=== PATIENT | male | born 1940 | race Caucasian/White ===

== ENCOUNTER 2018-10-13 08:02 | Outpatient (CLI) | payer MEDICARE, BC, SELFPAY ==
[2018-10-13 08:30] LABS: HCT 47.4 % (40.0-50.0); HGB 15.8 g/dL (13.5-17.5); Mean Corp. HGB Concentration 33.3 g/dL (32.0-36.0); Mean Corpuscular Hemoglobin 32.8 pg (27.0-33.0); Mean Corpuscular Volume 98.3 fL (80-95); Mean Platelet Volume 10.3 fL (8.0-11.0); Platelet Count 198 x1000/uL (130-400); RBC 4.82 m/cumm (4.50-6.00); RBC Distribution Width 13.6 % (11.8-14.1)
[2018-10-13 10:41] LABS: ALT 34 U/L (12-78); AST 26 U/L (15-37); Albumin 3.8 g/dL (3.4-5.0); Alkaline Phosphatase 52 U/L (46-116); Anion Gap 7.6 mmol/L (3-11); BUN 19 mg/dL (7-18); CO2 30.4 mmol/L (21.0-32.0); CREATININE 0.97 mg/dL (0.70-1.30); Calcium 9.1 mg/dL (8.5-10.1); Chloride 107 mmol/L (98-107); Cholesterol 202 mg/dL (50-200); Glucose 88 mg/dL (70-100); HDL Cholesterol 71 mg/dL (40-60); LDL CHOLESTEROL 115 mg/dL (<100); Potassium 4.1 mmol/L (3.5-5.1); Sodium 145 mmol/L (136-145); TSH (W/Ref FT4) 1.24 uIU/mL (0.358-3.74); Total Protein 6.8 g/dL (6.4-8.2); Triglyceride 94 mg/dL (30-150)
== END 2018-10-13 08:22 ==
PROVIDERS: PCP Nurse Practitioner; Visit Provider Nurse Practitioner
DX: E03.9 Hypothyroidism, unspecified (principal); G47.00 Insomnia, unspecified; I71.2 Thoracic aortic aneurysm, without rupture; E78.5 Hyperlipidemia, unspecified; I48.91 Unspecified atrial fibrillation; I10 Essential (primary) hypertension
CPT/HCPCS: 36415; 80053; 80061; 83721; 85027; 84443

== ENCOUNTER 2019-03-03 00:32 | Outpatient (CLI) | payer MEDICARE, BC, SELFPAY ==
--- NOTE | 2019-03-03 09:02 | DI.CT_ITS ---
SYMPTOMS/DIAGNOSIS: INTERMITTENT BALANCE PROBLEMS, VISION CHANGES, H53.9, R26.[address]: Comparison is made with [id number]. No intracranial hemorrhage, mass or infarct is seen. The ventricles are normal in size. There are minimal white matter changes likely reflecting small vessel disease. No skull fracture is seen. IMPRESSION: No acute abnormality.
--- NOTE | 2019-03-03 10:02 | DI.US_ITS ---
SYMPTOM/DIAGNOSIS: STROKE, VISUAL, IMBALANCE, HYPERTENSION, H53.9,R26.89 CAROTID ULTRASOUND: There is a mild amount of mostly calcific plaque and seen in both common carotid bulbs and proximal left internal carotid artery. A mild amount of plaque is also seen in the right proximal external carotid artery. The velocity measurements obtained are within the normal range. The vertebral arteries show antegrade flow. IMPRESSION: Mild amount of plaque. No significant internal carotid artery stenosis.
== END 2019-03-03 00:52 ==
PROVIDERS: PCP Nurse Practitioner; Visit Provider Nurse Practitioner
DX: H53.9 Unspecified visual disturbance (principal); R26.89 Other abnormalities of gait and mobility; I10 Essential (primary) hypertension; R90.82 White matter disease, unspecified
CPT/HCPCS: 70450; 93880

== ENCOUNTER 2019-03-24 08:31 | Outpatient (CLI) | payer MEDICARE, BC, SELFPAY ==
[2019-03-24 09:21] LABS: INR 1.4 (0.9-1.1); Prothrombin Time 14.1 sec (9.3-11.0)
== END 2019-03-24 08:51 ==
PROVIDERS: PCP Nurse Practitioner; Visit Provider Nurse Practitioner
DX: I48.91 Unspecified atrial fibrillation (principal); Z79.01 Long term (current) use of anticoagulants
CPT/HCPCS: 36415; 85610

== ENCOUNTER 2019-03-27 07:38 | Outpatient (CLI) | payer MEDICARE, BC, SELFPAY ==
[2019-03-27 08:19] LABS: INR 2.7 (0.9-1.1); Prothrombin Time 27.1 sec (9.3-11.0)
== END 2019-03-27 07:58 ==
PROVIDERS: PCP Nurse Practitioner; Visit Provider Nurse Practitioner
DX: I48.91 Unspecified atrial fibrillation (principal); Z79.01 Long term (current) use of anticoagulants
CPT/HCPCS: 36415; 85610

== ENCOUNTER 2019-05-29 13:06 | Outpatient (REF) | payer MEDICARE, BC, SELFPAY ==
--- NOTE | 2019-05-29 | SKI_PTH ---
PATIENT: Gage Arita JR LOC: N U#:[id number] AGE/SX: 78/M ROOM: RE05/29/[address]: Lilliam Hall APRN : 1940 BED: DIS: 05/29/2019 SPEC #: [id number] RECD: 05/29/19 18:00 STATUS: RACHEL REQ #: [id number] DEMETRIA: 05/29/19 00:[address]: Samir Thurston DEPT: Surgical Specimen RECD BY: Wilma Abebe ENTERED: 05/29/19 18:01 SP TYPE: SKI OTHR DR: Lilliam Hall APRN Tissues: 1 - SKIN BIOPSY(SHAVE/PUNCH) 2 - SKIN BIOPSY(SHAVE/PUNCH) Procedures: SKIN LEVEL 4 Comments: [id number]
== END 2019-05-29 13:26 ==
LOC: LBN 13:06
PROVIDERS: PCP Nurse Practitioner; Visit Provider Nurse Practitioner
DX: L82.1 Other seborrheic keratosis (principal)
CPT/HCPCS: 88304; 88305

== ENCOUNTER 2019-06-27 16:43 | Outpatient (CLI) | payer MEDICARE, BC, SELFPAY ==
[2019-06-27 17:24] LABS: INR 2.9 (0.9-1.1); Prothrombin Time 29.4 sec (9.3-11.0)
[2019-06-27 18:04] LABS: Abs Immature Grans 0.08 k/cumm (0.0-0.09); Absolute Basophil Count 0.03 k/cumm (0.0-0.2); Absolute Lymphocyte Count 1.35 k/cumm (1.2-3.4); Absolute Neutrophil Count 13.45 k/cumm (1.2-6.7); Basophils % 0.2; Eosinophils % 0.9; HCT 47.9 % (40.0-50.0); HGB 15.7 g/dL (13.5-17.5); Immature Grans % 0.5; Lymphocytes % 8.3; Mean Corp. HGB Concentration 32.8 g/dL (32.0-36.0); Mean Corpuscular Hemoglobin 32.2 pg (27.0-33.0); Mean Corpuscular Volume 98.2 fL (80-95); Mean Platelet Volume 10.7 fL (8.0-11.0); Monocytes % 7.4; Neutrophils % 82.7; Platelet Count 283 x1000/uL (130-400); RBC 4.88 m/cumm (4.50-6.00); RBC Distribution Width 13.1 % (11.8-14.1); White Blood Cell Count 16.26 k/cumm (4.4-10.8)
[2019-06-27 18:06] LABS: Absolute Eosinophil Count 0.15 k/cumm (0.0-0.7)
[2019-06-27 18:24] LABS: CREATININE 0.89 mg/dL (0.70-1.30)
== END 2019-06-27 17:03 ==
PROVIDERS: PCP Nurse Practitioner Adult Health; Visit Provider Internal Medicine
DX: R10.32 Left lower quadrant pain (principal); I48.91 Unspecified atrial fibrillation; Z79.01 Long term (current) use of anticoagulants
CPT/HCPCS: 36415; 82565; 85025; 85610

== ENCOUNTER 2019-06-28 11:37 | Outpatient (CLI) | payer MEDICARE, BC, SELFPAY ==
[2019-06-28] MEDS: Omnipaque 350 MG/ML 50 ML BTL PO (13:31)
[2019-06-28] MEDS: Omnipaque 350 MG/ML 100 ML BTL IJ (14:15)
--- NOTE | 2019-06-28 14:19 | DI.CT_ITS ---
EXAM: CT ABDOMEN PELVIS W CLINICAL HISTORY: LLQ abdominal pain, R10.32., H/O DIVERTICULITIS TECHNIQUE: CT of the abdomen and pelvis was performed with bolus infusion of 100 cc of Omnipaque 350 and ingestion of dilute barium. COMPARISON: No exams were available for comparison FINDINGS: Images obtained through the lung bases show some apparent areas of scarring, pulmonary and pleural. Liver is unremarkable in appearance as is the spleen. Pancreas appears intact. Gallbladder has been surgically removed. No biliary dilatation. Adrenals unremarkable in appearance. Multiple bilatera l nonobstructing renal calculi identified. No hydronephrosis. Abdominal aorta is of normal diameter and no major vascular abnormality is seen. No significant abdominal wall hernia seen. No abdominal or pelvic adenopathy. Appendix appears normal. There is marked wall thickening of the mid to distal descending colon and proximal to mid sigmoid col on with marked pericolonic fat edema. Findings are consistent with acute diverticulitis. There is f luid collection in the left inguinal region adjacent to the descending/sigmoid junction measuring up to about 3 cm. which could represent free fluid versus early abscess. Small quantity of free fluid is also noted in the pelvis. Findings consistent with acute diverticulitis of the descending and sig moid colon as described above. Small quantity of free fluid, early intra peritoneal abscess adjacent to the inguinal region not excluded.
== END 2019-06-28 11:57 ==
PROVIDERS: PCP Nurse Practitioner Adult Health; Visit Provider Internal Medicine
DX: R10.32 Left lower quadrant pain (principal); N20.0 Calculus of kidney; K57.32 Diverticulitis of large intestine without perforation or abscess without bleeding
CPT/HCPCS: 74177; J3490; Q9967

== ENCOUNTER 2019-07-01 08:21 | Emergency (ER) | payer MEDICARE, BC, SELFPAY ==
[2019-07-01 08:26] VITALS: BP 118/80; PULSE 88; RESP 14; TEMP 36.7; O2SAT 98
--- NOTE | 2019-07-01 08:53 | W.ED.GENAD ---
Discharge Plan Disposition Patient Disposition: HOME Condition: Good Discharge Details Chief Complaint: EyeProblem Clinical Impression: Conjunctivitis Primary Care Provider: Tory Pena ED Provider: Michelle Rosales Home Meds and New Rx's Prescriptions: Continued magnesium 250 mg tablet 250 mg PO DAILY RF: 0 metronidazole 500 mg tablet 500 mg PO TID Qty: 21 RF: 0 ciprofloxacin HCl [Cipro] 500 mg tablet 500 mg PO BID Qty: 14 RF: 0 coenzyme Q10 [CoQ-10] 30 MG capsule 30 mg PO DAILY 2 Days RF: 0 multivitamin [Multi-Day] 1 EACH tablet 1 ea PO DAILY RF: 0 acetaminophen [Acetaminophen Extra Strength] 500 MG tablet 500 mg PO PRN RF: 0 tamsulosin 0.4 MG capsule 0.4 mg PO DAILY Qty: 60 RF: 3 prednisone 5 MG tablet 5 mg PO DAILY RF: 0 dofetilide [Tikosyn] 500 MCG capsule 500 mcg PO BID RF: 0 cholecalciferol (vitamin D3) [Vitamin D3] 1,000 UNIT capsule 1,000 unit PO DAILY RF: 0 azelastine 137 MCG/0.137 ML aerosol,spray 2 spry NU BID RF: 2 calcium citrate 250 MG tablet 250 mg PO DAILY RF: 0 albuterol sulfate [ProAir HFA] 90 mcg/actuation HFA aerosol inhaler 2 puff Inhalation Q4H PRN Qty: 3 RF: 3 Shingrix (PF) 50 mcg/0.5 mL suspension for reconstitution 50 mcg IM ONCE Qty: 1 RF: 1 levothyroxine 112 mcg tablet 112 mcg PO DAILY Qty: 90 RF: 3 warfarin 3 mg tablet 3 mg PO DAILY RF: 0 lisinopril 5 mg tablet 2.5 mg PO DAILY RF: 0 Discharge Instructions Instructions: Polymyxin B/Neomycin/Dexamethasone (Into the eye), Conjunctivitis (ED) Additional Instructions: Encourage hydration. Please use the polymyxin Neosporin dexamethasone ointment. Please have a inch ribbon into the lower lid 4 times daily for the next 5 days. Please follow-up with industrial design engineer this week for reevaluation. If you develop eye pain, discharge, visual change, fevers or other new/worsening symptoms please seek care urgently once again. Referrals: Tory Pena, DEBONER [Primary Care Provider] - Discharge Data Discharge Date/Time-TO BE ENTERED AT DEPARTURE: 07/01/19 09:41 Medical Decision Making Patient 78-year-old male presents today with chief complaint of right eye redness and irritation. Yesterday, began noting some mild edema to the medial aspect of the sclera. Denies any pain in the eye. Is not itching. Denies any discharge. 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 Eyelid at this time is asymptomatic, no erythema or pain. Patient does have a small amount of swelling noted. He does endorse some congestion. I think this may be allergic driven. Without any discharge from bacterial conjunctivitis less likely. He denies any foreign body in the eye or foreign body sensation. As the patient has history of recurrent blepharitis along with todays symptoms, plan to treat with polymyxin/neomycin/dexamethasone ointment. He has an industrial design engineer he sees routinely, advised close f/u. W e discussed new/worsening symptoms and when to seek care urgently once again. All of her questions and concerns were addressed, she is in agreement with this plan. HPI General Mode of arrival: ambulatory. Date/Time Provider Initiated Documentation: 07/01/19 08:53. Limitations to Documentation: no limitations. Information obtained by: patient and RN notes reviewed. History of Present Illness 78 year old M presents to the emergency department with the chief complaint of Right eye redness, described as mild (States mild irritation but no pain), and is localized to the eyes. Patient reports no radiation. Patient started experiencing this day(s) (3) and it has been constant. No relieving factors improve symptom(s), No exacerbating factors reported . Patient notes no other symptoms.. Patient did receive the following treatments prior to arrival, none Related Data Home Medications Medication Instructions Recorded Confirmed acetaminophen [Acetaminophen Extra 500 mg PO PRN 12/12/12 07/01/19 Strength] coenzyme Q10 [CoQ-10] 30 mg PO DAILY 2 Days 12/12/12 07/01/19 multivitamin [Multi-Day] 1 ea PO DAILY 12/12/12 07/01/19 tamsulosin 0.4 mg PO DAILY #60 tab-cap 02/03/13 07/01/19 prednisone 5 mg PO DAILY tab-cap 02/10/13 07/01/19 dofetilide [Tikosyn] 500 mcg PO BID 06/22/13 07/01/19 cholecalciferol (vitamin D3) 1,000 unit PO DAILY 01/01/16 07/01/19 [Vitamin D3] azelastine 2 spry NU BID spray 03/15/17 07/01/19 calcium citrate 250 mg PO DAILY 06/17/17 07/01/19 albuterol sulfate 90 mcg/actuation 2 puff INHALATION Q4H PRN #3 07/26/18 07/01/19 aerosol inhaler inhaler varicella-zoster [id number] (PF) 50 50 mcg IM ONCE #1 each 09/12/18 06/27/19 mcg/0.5 mL IM susp, kit levothyroxine 112 mcg tablet 112 mcg PO DAILY #90 tab-cap 11/17/18 07/01/19 magnesium 250 mg tablet 250 mg PO DAILY 03/21/19 07/01/19 ciprofloxacin HCl 500 mg tablet 500 mg PO BID #14 tab 06/27/19 07/01/19 metronidazole 500 mg tablet 500 mg PO TID #21 tab 06/27/19 07/01/19 lisinopril 2.5 mg PO DAILY 07/01/19 07/01/19 warfarin 3 mg PO DAILY 07/01/19 07/03/19 Previous Rx's Medication Instructions Recorded albuterol sulfate 90 mcg/actuation 2 puff INHALATION Q4H PRN #3 07/26/18 aerosol inhaler inhaler varicella-zoster [id number] (PF) 50 50 mcg IM ONCE #1 each 09/12/18 mcg/0.5 mL IM susp, kit levothyroxine 112 mcg tablet 112 mcg PO DAILY #90 tab-cap 11/17/18 ciprofloxacin HCl 500 mg tablet 500 mg PO BID #14 tab 06/27/19 metronidazole 500 mg tablet 500 mg PO TID #21 tab 06/27/19 Allergies Allergy/AdvReac Type Severity Reaction Status Date / Time aspirin Allergy Severe sob Verified 06/27/19 15:26 Cephalosporins Allergy Intermediate hives Verified 06/27/19 15:26 clopidogrel bisulfate Allergy Intermediate SOB Verified 06/27/19 15:26 [From Plavix] Penicillins Allergy Intermediate childhood Verified 06/27/19 15:26 rxn DUST Allergy Unknown Uncoded 06/27/19 15:26 General Stated Complaint: EyeProblem AUBREY: 4 Review of Systems Constitutional Constitutional: Reports as per HPI, Denies chills, Denies fatigue, Denies fever(s) and Denies headache(s) Eyes Eyes: Reports as per HPI ENT Ears, Nose, Mouth, and Throat: Denies headache(s) Cardiovascular Cardiovascular: Reports as per HPI, Denies chest pain and Denies lightheadedness Respiratory Respiratory: Denies cough Integumentary/Breasts Skin/Breast: Reports as per HPI, Denies rash, Denies skin pain and Denies skin swelling Neurologic Neurologic: Denies headache(s) and Denies radicular pain Endocrine Endocrine: Denies fatigue [facility] Medical History A-fib Aneurysm, ascending aorta Asthma 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 JOSÉ MANUEL (generalized anxiety disorder) GERD (gastroesophageal reflux disease) HTN (hypertension) Lower urinary tract symptoms (LUTS) Rectal urgency Surgical History Bronchoscopy (01/23/15) with bx Cholecystectomy (~2003) Dr Santana Mora Colonscopy w/ Bx (08/12/16) [place] (01/12/17[place] [place] [facility] [place]air of inguinal hernia (10/15/15) Dr Martin S/P ablation of atrial fibrillation (Acute 02/08/13) Social History Smoking/Tobacco Use Status: Former Tobacco Use Tobacco: How many years used: 10 Alcohol Intake: current Alcohol Intake frequency: 0-2 drinks per day Alcohol type: wine Drug use: Never Substance use type: does not use Do you feel safe in your relationship?: Yes Exam Const General: cooperative, healthy appearing, comfortable, no acute distress, well developed and well groomed Nutritional Appearance: average body habitus and well nourished Orientation: alert, awake and oriented x3 HENMT Head: normal to inspection, normocephalic and atraumatic Ears: hearing grossly normal bilaterally and external ears normal General nose exam: external nose normal and nares normal Face and sinus: normal facial exam and face symmetric Mouth: oral mucosae normal, lip normal and moist mucous membranes Eyes Visual Camara: normal visual camara by confrontation Alignment and Position: alignment normal and position normal Periorbital: periorbital findings normal Eyelids: eyelids normal Conjunctivae: conjunctival abnormality right conjunctival injection diffuse Pupils: PERRL and normal by confrontation EOM: EOM intact bilaterally Resp Effort & Inspection: normal respiratory effort, able to speak in complete sentences and no respiratory distress Skin General skin exam: no rashes or lesions noted Neuro General: alert, awake and oriented x3 Cranial Nerves: CN's II-XI intact bilaterally Cognition: normal cognition Speech: speech normal Gait: normal gait Psych Appearance: grossly normal and well kempt Mental Status: mental status grossly normal Speech and Movement: speech and movement normal Course Vital Signs Vital signs: Vital Signs Temperature 36.7 C 07/01/19 08:26 Pulse 88 07/01/19 08:26 Respiratory Rate 14 07/01/19 08:26 Blood Pressure 118/80 07/01/19 08:26 Pulse Oximetry 98 07/01/19 08:26 Temperature 36.7 C 07/01/19 08:26 Temperature Source Tympanic 07/01/19 08:26 Pulse 88 07/01/19 08:26 Respiratory Rate 14 07/01/19 08:26 Blood Pressure 118/80 07/01/19 08:26 Pulse Oximetry 98 07/01/19 08:26 Oxygen Delivery Method Room Air 07/01/19 08:26 Oxygen Flow Rate 0 07/01/19 08:26 Pain Level 3 07/01/19 08:26 Comment 07/01/19 08:26
== END 2019-07-01 09:41 | disposition home or self-care (01) ==
PROVIDERS: Emergency Provider Physician Assistant; PCP Nurse Practitioner Adult Health
DX: H10.31 Unspecified acute conjunctivitis, right eye (principal); I10 Essential (primary) hypertension
CPT/HCPCS: 99283

== ENCOUNTER 2019-12-15 03:09 | Outpatient (CLI) | payer MEDICARE, BC, SELFPAY ==
--- NOTE | 2019-12-15 08:55 | DI.RAD_ITS ---
EXAM: XR CHEST 2V PA LATERAL INDICATION: Assess interval resolution bibas PNA J18.9 PNEUMONIA. COMPARISON: CHEST 2 VIEWS PA,LAT from 01/18/2015 TECHNIQUE: 2D digital imaging was performed. FINDINGS: The heart size is within normal limits. The aorta is tortuous. The lungs appear clear. The previo usly noted infiltrates are no longer seen. No new abnormalities are identified. IMPRESSION: Interval resolution right lower lobe infiltrate. No new abnormalities. DATA REPOSITORY: RADIATION DOSE DELIVERED:
[2019-12-15 09:51] LABS: ALT 29 U/L (16-63); AST 22 U/L (15-37); Albumin 3.6 g/dL (3.4-5.0); Alkaline Phosphatase 55 U/L (46-116); Anion Gap 7.8 mmol/L (3-11); BUN 15 mg/dL (7-18); Bilirubin, Total 0.9 mg/dL (0.2-1.0); CO2 29.2 mmol/L (21.0-32.0); CREATININE 0.87 mg/dL (0.70-1.30); Calcium 8.7 mg/dL (8.5-10.1); Chloride 107 mmol/L (98-107); Glucose 100 mg/dL (74-106); Sodium 144 mmol/L (136-145); Total Protein 6.4 g/dL (6.4-8.2)
== END 2019-12-15 03:29 ==
PROVIDERS: PCP Nurse Practitioner Adult Health; Visit Provider Nurse Practitioner Adult Health
DX: J18.9 Pneumonia, unspecified organism (principal); I10 Essential (primary) hypertension
CPT/HCPCS: 36415; 80053; 71046

== ENCOUNTER 2020-04-02 01:22 | Outpatient (CLI) | payer MEDICARE, BC, SELFPAY ==
[2020-04-02 11:12] LABS: Abs Immature Grans 0.05 k/cumm (0.0-0.09); Absolute Basophil Count 0.03 k/cumm (0.0-0.2); Absolute Eosinophil Count 0.19 k/cumm (0.0-0.7); Absolute Lymphocyte Count 0.95 k/cumm (1.2-3.4); Absolute Monocyte Count 0.57 k/cumm (0.11-0.7); Absolute Neutrophil Count 7.34 k/cumm (1.2-6.7); Basophils % 0.3; Eosinophils % 2.1; HCT 44.7 % (40.0-50.0); HGB 15.1 g/dL (13.5-17.5); Immature Grans % 0.5 %; Lymphocytes % 10.4; Mean Corp. HGB Concentration 33.8 g/dL (32.0-36.0); Mean Corpuscular Hemoglobin 32.5 pg (27.0-33.0); Mean Corpuscular Volume 96.1 fL (80-95); Mean Platelet Volume 10.8 fL (8.0-11.0); Monocytes % 6.2; Neutrophils % 80.5; Platelet Count 199 x1000/uL (130-400); RBC 4.65 m/cumm (4.50-6.00); RBC Distribution Width 13.1 % (11.8-14.1); White Blood Cell Count 9.13 k/cumm (4.4-10.8)
[2020-04-02 11:38] LABS: ALT 32 U/L (16-63); AST 27 U/L (15-37); Albumin 3.9 g/dL (3.4-5.0); Alkaline Phosphatase 56 U/L (46-116); Anion Gap 9.5 mmol/L (3-11); BUN 14 mg/dL (7-18); CO2 26.5 mmol/L (21.0-32.0); CREATININE 0.85 mg/dL (0.70-1.30); Chloride 106 mmol/L (98-107); Glucose 109 mg/dL (74-106); Magnesium 2.1 mg/dL (1.8-2.4); Sodium 142 mmol/L (136-145); TSH (W/Ref FT4) 0.83 uIU/mL (0.36-3.74); Total Protein 6.7 g/dL (6.4-8.2)
[2020-04-02 13:54] LABS: Vitamin B12 360 pg/mL (193-986)
== END 2020-04-02 01:42 ==
PROVIDERS: PCP Nurse Practitioner Adult Health; Visit Provider Nurse Practitioner Adult Health
DX: I48.91 Unspecified atrial fibrillation (principal); R42 Dizziness and giddiness; R53.83 Other fatigue; I71.2 Thoracic aortic aneurysm, without rupture
CPT/HCPCS: 36415; 80053; 82607; 83735; 84443; 85025

== ENCOUNTER 2020-06-13 03:54 | Outpatient (CLI) | payer MEDICARE, BC, SELFPAY ==
[2020-06-13 07:46] LABS: Abs Immature Grans 0.07 10^3/uL (0.0-0.06); Absolute Basophil Count 0.05 10^3/uL (0.0-0.2); Absolute Lymphocyte Count 1.57 10^3/uL (1.2-3.4); Absolute Monocyte Count 0.93 10^3/uL (0.1-0.8); Absolute Neutrophil Count 7.68 10^3/uL (1.2-6.7); Basophils % 0.5; Eosinophils % 1.9; HGB 14.9 g/dL (13.5-17.5); Immature Grans % 0.7; MCH 32.6 pg (27.0-33.0); MCHC 33.1 % (32.0-36.0); MCV 98.5 fL (80-95); MPV 11.2 fL (8.0-11.0); Monocytes % 8.9; Nucleated RBC 0 %; Platelet Count 199 10^3/uL (130-400); RBC 4.57 10^6/uL (4.36-5.78); RDW 13.1 % (11.8-14.1)
[2020-06-13 07:56] LABS: Prothrombin Time 10.2 sec (9.3-11.0)
[2020-06-13 08:45] LABS: Iron 50 ug/dL (65-175); Total Iron Binding Capacity 308 ug/dL (250-450); Transferrin Sat 16 % (20-55)
[2020-06-13 09:11] LABS: ALT 36 U/L (16-63); AST 20 U/L (15-37); Albumin 3.6 g/dL (3.4-5.0); Alkaline Phosphatase 54 U/L (46-116); Anion Gap 6.3 mmol/L (3-11); BUN 19 mg/dL (7-18); Bilirubin, Total 0.9 mg/dL (0.2-1.0); CO2 27.7 mmol/L (21.0-32.0); CREATININE 0.82 mg/dL (0.70-1.30); Calcium 8.9 mg/dL (8.5-10.1); Chloride 110 mmol/L (98-107); Ferritin 107 ng/mL (26-388); Folate > 20.0 ng/mL (8.6-20.0); Glucose 91 mg/dL (74-106); Potassium 4.1 mmol/L (3.5-5.1); Sodium 144 mmol/L (136-145); TSH 1.64 uIU/mL (0.36-3.74); Total Protein 6.3 g/dL (6.4-8.2); Vitamin B12 928 pg/mL (193-986)
[2020-06-13 09:19] LABS: C-Reactive Protein 0.32 mg/dL (0.0-0.3)
[2020-06-13 09:32] LABS: ESR 9 mm/hr (1-20)
== END 2020-06-13 04:14 ==
PROVIDERS: Nurse Practitioner; PCP Nurse Practitioner Adult Health; Visit Provider Internal Medicine Rheumatology
DX: R53.83 Other fatigue (principal); M19.90 Unspecified osteoarthritis, unspecified site; D64.9 Anemia, unspecified; E03.9 Hypothyroidism, unspecified; I48.91 Unspecified atrial fibrillation
CPT/HCPCS: 36415; 80053; 85652; 82607; 82728; 82746; 83540; 83550; 84443; 85025; 85610; 86140

== ENCOUNTER 2022-01-04 02:02 | Emergency (ER) | payer MEDICARE, BC, SELFPAY ==
[2022-01-04] VITALS (22 sets, daily range): BP systolic 128–161; BP diastolic 77–85; PULSE 81–96; RESP 11–20; TEMP 37.3–37.4; O2SAT 91–96
--- NOTE | 2022-01-04 02:15 | DI.CT_ITS ---
Exam(s) CT ABDOMEN PELVIS W EXAM: CT ABDOMEN PELVIS W CLINICAL HISTORY: nausea vomiting diarrhea. TECHNIQUE: Imaging Protocol: Axial computed tomography images with coronal and sagittal reformatted images were created and reviewed CONTRAST MATERIAL: Intravenous: Omnipaque 350 Contrast volume:100 ml Oral: no COMPARISON: CT CT ABDOMEN PELVIS W from 06/28/2019 FINDINGS: ABDOMEN: Lung Bases: Minimal dependent changes. Liver: Fatty infiltration. No measurable mass. Gallbladder and biliary tract: Status post cholecystectomy. No radiodense calculus or dilation. Pancreas: Normal density, no abnormal calcifications or inflammatory process. Spleen: Normal. Kidneys: Normal size, contour and axis. Few bilateral nonobstructing punctate calcifications. No ob structive uropathy. No masses seen. Small cysts. Adrenal glands: No masses seen. Abdominal Aorta: Abdominal portion non-dilated. Moderate atherosclerotic changes. PELVIS: Bladder: No gross wall thickening. No calculi.No focal mass. Bowel: Mildly dilated loops of small bowel mainly in the left upper quadrant. No bowel wall thickeni ng. Appendix normal. Normal quantity of stool. Diverticulosis throughout descending colon. No evid ence of diverticulitis. Peritoneal cavity: No ascites, collection or mesenteric inflammatory response. Bones: Degenerative changes in the hips and spine.. Stable mild L1 compression fracture. Reproductive organs: Markedly enlarged prostate impressing on the base of the bladder. Lymph nodes: Unremarkable. Impression: Mild nonspecific small bowel distension, ileus versus enteritis. Bilateral nonobstructing renal calculi. RADIATION DOSE DELIVERED: 926.26mGy.cm Total DLP DATA REPOSITORY: All CT scans at this facility are submitted to the National Radiology Data Registry (NRDR) Dose Index Registry (DIR) with the [employer] ([employer]). RADIATION OPTIMIZATION: All CT scans at this facility use at least one of these dose optimization te chniques: automated exposure control; mA and/or kV adjustment per patient size (includes targeted exa ms where dose is matched to clinical indication); or iterative reconstruction.
--- NOTE | 2022-01-04 02:15 | RT.EKG_ITS ---
APPROVED REPORT Exam: Resting ECG Reason for Exam: hx of afib Patient Location: E HR:91 bpm ECG Measurements Heart Rate 91 AXIS WA 175 P 25 QRSd 145 QRS -44 QT 392 T 1 QTc 483 Conclusion Sinus rhythm...normal P axis, V-rate 60- 99 RBBB and LAFB...QRSd >120mS, axis(-40,240) sinus rhythm, RBBB with repol
[2022-01-04] MEDS: Ondansetron 4 MG/2 ML VIAL IVP (02:34)
[2022-01-04] MEDS: Normal Saline 1,000 ML 1000 ML IV (02:34)
--- NOTE | 2022-01-04 02:45 | W.ED.GENAD ---
Discharge Plan Disposition Patient Disposition: HOME Condition: Improving Discharge Details Chief Complaint: Nausea/Vomit/Diar Clinical Impression: Gastroenteritis Primary Care Provider: Tory Pena ED Provider: Byron Pardo Home Meds and New Rx's Prescriptions: No Action fexofenadine [Allergy Relief (fexofenadine)] 180 mg tablet 180 mg PO Q24H 0RF fluticasone propionate [Flonase Allergy Relief] 50 mcg/actuation spray,suspension 2 spray EDEL DAILY PRN (Reason: allergy symptoms) Qty: 9.9 2RF Rx Instructions: administer into each nostril for post-nasal drip triamcinolone acetonide 0.1 % cream 1 applic topical TID Qty: 15 0RF Rx Instructions: Apply thin layer to chest wall rash 3x/d x2-3 days, then PRN itch, swelling, max 14d. magnesium 250 mg tablet 250 mg PO DAILY 0RF albuterol sulfate [ProAir HFA] 90 mcg/actuation HFA aerosol inhaler 2 puff Inhalation Q4H PRN Qty: 3 3RF cyanocobalamin (vitamin B-12) 1,000 mcg/mL solution 1,000 mcg IM QMONTH Qty: 10 0RF Rx Instructions: Fatigue & B12 deficiency (DME) syringe 21G, 1 inch See Rx Instructions .Route .MEDSUPPLY Qty: 6 0RF Rx Instructions: As directed for monthly B12 injections multivitamin [Multi-Day] 1 EACH tablet 1 ea PO DAILY 0RF acetaminophen [Acetaminophen Extra Strength] 500 MG tablet 500 mg PO PRN 0RF tamsulosin 0.4 MG capsule 0.4 mg PO DAILY Qty: 60 3RF prednisone 5 MG tablet 5 mg PO DAILY 0RF Label Comments: 07/09/16- 5mg tab daily. NC 02/09/17 Rheumatology [facility] Decrease by 1/2 mg Q 2-4 weeks depending on how pt feels Rx Instructions: Rheumatology [facility] dofetilide [Tikosyn] 500 MCG capsule 500 mcg PO BID 0RF azelastine 137 MCG/0.137 ML aerosol,spray 2 spry NU BID 2RF Rx Instructions: Dr. Thurston 03/15/17 [facility] calcium citrate 250 MG tablet 250 mg PO DAILY 0RF cholecalciferol (vitamin D3) [Vitamin D3] 25 mcg (1,000 unit) capsule 1,000 unit PO Q OTHER DAY 0RF apixaban 5 mg tablet 5 mg PO BID Qty: 180 3RF lisinopril 5 mg tablet 2.5 mg PO DAILY Qty: 45 3RF Hold Instructions: Home Medication placed on hold at Doctor's office levothyroxine 112 mcg tablet 112 mcg PO DAILY Qty: 90 3RF Discharge Instructions Instructions: Gastroenteritis (ED) Additional Instructions: Please see my primary care physician at next available appointment. Consider electrolyte solution for hydration such as Gatorade or Pedialyte at home. Return for worsening symptoms such as uncontrolled vomiting diarrhea or constipation or severe abdominal pain and distention. Medical Decision Making 81-year-old male history of diverticulosis, A. fib, presents with nausea vomiting and diarrhea over the past several hours, one episode of vomiting, abdomen soft nontender nondistended, slightly dry oral mucosa, borderline tachycardia, sinus rhythm, consider viral syndrome with gastroenteritis versus diverticulitis versus less likely bowel obstruction versus less likely urologic versus unlikely cardiopulmonary in nature. Fluids antiemetics CT abdomen pelvis close reassessment Clinical picture, CT, and labs consistent with enteritis with component of dehydration. Patient feeling much better after fluids heart rate has improved. Has more energy than on arrival. Nontoxic no vomiting or diarrhea here in the department. Home care instructions and return precautions given. No clinical evidence of bowel obstruction. HPI General Date/Time Provider Initiated Documentation: 01/04/22 02:11. HPI Narrative: 81-year-old male history of A. fib on anticoagulation, history of diverticulosis, presents with nausea vomiting and diarrhea this evening, multiple loose brown stools and one episode of nonbloody nonbilious emesis. Denies chest pain or shortness of breath. Feeling slightly fatigued. Related Data Home Medications Medication Instructions Recorded Confirmed acetaminophen 500 mg tablet 500 mg PO PRN 12/12/12 01/04/22 (Acetaminophen Extra Strength) multivitamin (Multi-Day) 1 ea PO DAILY 12/12/12 01/04/22 tamsulosin 0.4 mg capsule 0.4 mg PO DAILY #60 tab-cap 02/03/13 01/04/22 prednisone 5 mg tablet 5 mg PO DAILY tab-cap 02/10/13 01/04/22 dofetilide 500 mcg capsule 500 mcg PO BID 06/22/13 01/04/22 (Tikosyn) azelastine 137 mcg (0.1 %) nasal 2 spry NU BID spray 03/15/17 01/04/22 spray aerosol calcium citrate 250 mg PO DAILY 06/17/17 01/04/22 fexofenadine 180 mg tablet 180 mg PO Q24H 10/09/19 01/04/22 (Allergy Relief (fexofenadine)) fluticasone propionate 50 2 spray EDEL DAILY PRN #9.9 ml 12/18/19 01/04/22 mcg/actuation nasal spray,suspension (Flonase Allergy Relief) magnesium 250 mg tablet 250 mg PO DAILY tab 05/17/20 01/04/22 cholecalciferol (vitamin D3) 25 1,000 unit PO Q OTHER DAY cap 01/17/21 01/04/22 mcg (1,000 unit) capsule (Vitamin D3) triamcinolone acetonide 0.1 % 1 applic TOPICAL TID #15 g 01/17/21 01/04/22 topical cream apixaban 5 mg tablet 5 mg PO BID #180 tab 09/03/21 01/04/22 lisinopril 5 mg tablet 2.5 mg PO DAILY #45 tab 09/11/21 01/04/22 albuterol sulfate 90 mcg/actuation 2 puff INHALATION Q4H PRN #3 10/31/21 01/04/22 aerosol inhaler (ProAir HFA) inhaler cyanocobalamin (vitamin B-12) 1,000 mcg IM QMONTH #10 ml 10/31/21 01/04/22 1,000 mcg/mL injection solution syringe 21G, 1 inch #6 ea 10/31/21 10/31/21 levothyroxine 112 mcg tablet 112 mcg PO DAILY #90 tab-cap 11/03/21 01/04/22 Previous Rx's Medication Instructions Recorded fluticasone propionate 50 2 spray EDEL DAILY PRN #9.9 ml 12/18/19 mcg/actuation nasal spray,suspension (Flonase Allergy Relief) triamcinolone acetonide 0.1 % 1 applic TOPICAL TID #15 g 01/17/21 topical cream apixaban 5 mg tablet 5 mg PO BID #180 tab 09/03/21 lisinopril 5 mg tablet 2.5 mg PO DAILY #45 tab 09/11/21 albuterol sulfate 90 mcg/actuation 2 puff INHALATION Q4H PRN #3 10/31/21 aerosol inhaler (ProAir HFA) inhaler cyanocobalamin (vitamin B-12) 1,000 mcg IM QMONTH #10 ml 10/31/21 1,000 mcg/mL injection solution syringe 21G, 1 inch #6 ea 10/31/21 levothyroxine 112 mcg tablet 112 mcg PO DAILY #90 tab-cap 11/03/21 Allergies Allergy/AdvReac Type Severity Reaction Status Date / Time aspirin Allergy Severe sob Verified 01/04/22 02:12 Cephalosporins Allergy Intermediate hives Verified 01/04/22 02:12 clopidogrel bisulfate Allergy Intermediate SOB Verified 01/04/22 02:12 [From Plavix] Penicillins Allergy Intermediate childhood Verified 01/04/22 02:12 rxn DUST Allergy Unknown Uncoded 01/04/22 02:12 General Stated Complaint: Nausea/Vomit/Diar AUBREY: 3 Review of Systems Narrative: Review of Systems Constitutional: negative Eyes: negative ENT: negative Cardiovascular: negative Respiratory: negative Gastrointestinal: Nausea vomiting diarrhea : negative Musculoskeletal: negative Skin: negative Neurologic: negative Psych: negative PFSH All Active Problems (Updated 01/04/22 @ 04:42 by Byron Pardo MD) Gastroenteritis (Acute) Seborrheic keratosis, inflamed (Acute) Primary osteoarthritis involving multiple joints (Acute) 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 Joseph Duncan MD Abnormality of gait due to impairment of balance (Acute) PT referral Hip arthritis (Chronic) [facility] Ortho Fatigue (Acute) 10/2019 increased symtpoms; low normal B12, started injection treatment 03/2020 Conjunctival cysts, bilateral (Acute) Dr Cotter,[facility] On dofetilide therapy (Acute) Treating AFIB. 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 Management tight systolic BP control 90-120mmHg goal. 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) [facility] Urology (Hans Mittal); RX Flomax NEG cystoscopy 06/2020 Basal cell carcinoma (Chronic 01/24/15) [facility] Derm annually (Mazin) R lat intraorbital fold L pre-auricular cheek (2013) Forehead & L cheek (2009) Atrial fibrillation (Chronic 10/15/11) PAF; Warfarin; [facility] cardiology; ablation and PVI x2 02/2013 ECHO 01/2019 EF 57% Zio 13-day 11/2018, no AFib seen Asthma (Chronic 01/24/15) Actinic keratosis (Chronic 01/24/15) [facility] Derm (Mazin) Medical History A-fib Aneurysm, ascending aorta Asthma Benign neoplasm of large intestine Chronic prostatitis (10/15/11) chronic steroid use Diverticulitis JOSÉ MANUEL (generalized anxiety disorder) GERD (gastroesophageal reflux disease) HTN (hypertension) Inguinal hernia of right side without obstruction or gangrene 02/18/2136-bpjiarof-Ob C.Danielson Kidney 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 removal of cyst. Cystoscopy (01/12/17) Dr Peguero-[facility] knee injection (11/21/15) [facility]-DR FLORES Repair of inguinal hernia (10/15/15) LEFT; Dr. Aleks Mora S/P ablation of atrial fibrillation (02/08/13) S/P right inguinal herniorrhaphy (~02/18/21) Dr Mora Family History Mother CAD (coronary artery disease) Father , 90's Glaucoma Prostate cancer Sister , 77 heart and pulmonary issues CAD (coronary artery disease) Brother Prostate cancer Social History Smoking/Tobacco Use Status: Former Tobacco Use Smoking risk assessment performed?: Yes Alcohol Intake: current Alcohol Intake frequency: 0-2 drinks per day Alcohol type: wine Drug use: Never Substance use type: does not use Details: Quit smoking 55 years ago. Drinks 6-7oz wine every night. Household members: spouse Housing: house Communication Needs: None current occupation: retired Current gender identity: male What is your relationship status?: Panel score (0-1 are the most socially isolated patients): 1 What type of physical activity do you participate in: bicycling, regular exercise and other Frequency: 3-4 times per week Working smoke detector in home: Yes Fire extinguisher in home: Yes Carbon monox detector in home: Yes Do you feel safe at home: Yes Do you feel safe in your relationship?: Yes Exam Narrative Exam Narrative: Physical Examination General: alert, awake, cooperative, resting comfortably, no acute distress HEENT: normocephalic, atraumatic; PERRL, EOM intact, conjunctiva normal; no nasal discharge; slight drying of the oral mucosa Neck: supple, trachea midline; full ROM Chest: normal to inspection Respiratory: normal respiratory effort, speaking in full sentences, clear to auscultation, no wheezing, rales or rhonchi Cardiac: regular rate, regular rhythm, S1S2 intact, no murmurs rubs or gallops GI: abdomen soft, non-tender, non-distended; no palpable mass or hepatosplenomegaly Skin: no lesions, rashes or trauma appreciated Neuro: AAOx3, normal speech, moving all extremities Psych: Appropriate mood and affect Course Vital Signs Vital signs: Vital Signs Temperature 37.3 C 01/04/22 02:07 Pulse 96 H 01/04/22 02:07 Respiratory Rate 12 01/04/22 02:07 Blood Pressure 161/85 H 01/04/22 02:07 Pulse Oximetry 94 01/04/22 02:07 Temperature 37.3 C 01/04/22 02:07 Temperature Source Temporal Artery Scan 01/04/22 02:07 Pulse 96 H 01/04/22 02:07 Respiratory Rate 12 01/04/22 02:07 Respiratory Effort Non-Labored 01/04/22 02:12 Blood Pressure 161/85 H 01/04/22 02:07 Pulse Oximetry 94 01/04/22 02:07 Oxygen Delivery Method Room Air 01/04/22 02:07 Oxygen Flow Rate 0 01/04/22 02:07 Pain Level 0 01/04/22 02:07 PAWSS Have you Been Recently Intoxicated or Drunk Within the Last 30 days?: No Have you Ever Experienced Previous Episodes of Alcohol Withdrawal?: No Have you ever Experienced Withdrawal Seizures?: No Have you ever Experienced Delirium Tremens(DT)s?: No Have you ever undergone Alcohol Rehabilitation Treatment (i.e, inpt ot outpatient treatment programs)?: No Have you ever Experienced Blackouts?: No Have you ever Combined Alcohol with other Downers within the last 90 days?: No Have you ever Combined Alcohol with any other Substance of Abuse during the last 90 days?: No Positive Blood Alcohol level on Presentation? [PCS.BAL]: No Evidence of Increased Autonomic Activity (i.e. HR>120, tremor, sweating, agitation, nausea)?: No Result: 0
[2022-01-04 03:00] LABS: Abs Immature Grans 0.08 10^3/uL (0.0-0.06); Absolute Basophil Count 0.06 10^3/uL (0.0-0.2); Absolute Eosinophil Count 0.12 10^3/uL (0.0-0.7); Absolute Lymphocyte Count 0.45 10^3/uL (1.2-3.4); Absolute Monocyte Count 0.72 10^3/uL (0.1-0.8); Absolute Neutrophil Count 13.19 10^3/uL (1.2-6.7); Basophils % 0.4; Eosinophils % 0.8; HCT 51.4 % (40.0-50.0); Immature Grans % 0.5; Lymphocytes % 3.1; MCH 32.7 pg (27.0-33.0); MCHC 33.1 % (32.0-36.0); MCV 98.8 fL (80-95); MPV 11.3 fL (8.0-11.0); Monocytes % 4.9; Neutrophils % 90.3; Nucleated RBC 0 %; Platelet Count 190 10^3/uL (130-400); RDW 12.4 % (11.8-14.1); RDW-SD 45.2 fL; WBC 14.61 10^3/uL (4.4-10.8)
[2022-01-04 03:13] LABS: ALT 37 U/L (16-63); AST 25 U/L (15-37); Alkaline Phosphatase 60 U/L (46-116); Anion Gap 8.8 mmol/L (3-11); BUN 25 mg/dL (7-18); CO2 26.2 mmol/L (21.0-32.0); Calcium 8.7 mg/dL (8.5-10.1); Chloride 108 mmol/L (98-107); Glucose 127 mg/dL (74-106); Potassium 3.4 mmol/L (3.5-5.1); Sodium 143 mmol/L (136-145); Total Protein 7.6 g/dL (6.4-8.2)
[2022-01-04] MEDS: Omnipaque 350 MG/ML 100 ML BTL IJ (03:47)
--- NOTE | 2022-01-04 04:29 | DI.VRAD_ITS ---
PROCEDURE INFORMATION: Exam: CT Abdomen And Pelvis With Contrast Exam date and time: 01/04/2022 3:27 AM Age: 81 years old Clinical indication: Nausea and vomiting and other: Diarrhea; Patient HX: Nausea, vomiting, diarrhea TECHNIQUE: Imaging protocol: Computed tomography of the abdomen and pelvis with contrast. COMPARISON: CT ABDOMEN PELVIS W 06/28/2019 2:15 PM FINDINGS: Mild basilar subsegmental atelectasis versus scarring if Liver: Fatty infiltration. No mass. Gallbladder and bile ducts: Prior cholecystectomy. No ductal dilation. Pancreas: Normal. No ductal dilation. Spleen: Normal. No splenomegaly. Adrenal glands: Normal. No mass. Kidneys and ureters: Faint renal calculi. Renal hypodensities too small to characterize No hydronephrosis. Stomach and bowel: Prominent/borderline dilated loops of small bowel in the mid left abdomen with fluid levels. There is fluid throughout the small bowel extending to the distal ileum. Colonic diverticulosis noted Appendix: No evidence of appendicitis. Intraperitoneal space: Unremarkable. No free air. No significant fluid collection. Vasculature: Tortuous iliac arteries and aorta. No abdominal aortic aneurysm. Lymph nodes: Unremarkable. No enlarged lymph nodes. Urinary bladder: Unremarkable as visualized. Reproductive: Enlarged prostate gland Bones/joints: Degenerative changes in the spine No acute fracture. Soft tissues: Unremarkable. IMPRESSION: Non-specific bowel gas pattern which may represent enteritis/ileus versus developing distal partial small bowel obstruction Colonic diverticulosis without diverticulitis Faint nonobstructing renal calculi Nonurgent findings as described Dictated and Authenticated by: Alonso Galeano MD. Ordering:MAGDI Matthews MD
== END 2022-01-04 04:59 | disposition home or self-care (01) ==
PROVIDERS: Emergency Provider Emergency Medicine; PCP Nurse Practitioner Adult Health
DX: K52.9 Noninfective gastroenteritis and colitis, unspecified (principal); I48.91 Unspecified atrial fibrillation; R19.7 Diarrhea, unspecified
CPT/HCPCS: 36415; 80053; 93005; 96361; 96374; 99285; 74177; 85025; 93010; 99283; J2405; J3490

== ENCOUNTER 2022-03-27 12:20 | Outpatient (REF) | payer MEDICARE, BC, SELFPAY ==
--- NOTE | 2022-03-27 09:10 | SKI_PTH ---
PATIENT: Gage Arita JR LOC: [facility] U#:[id number] AGE/SX: 81/M ROOM: RE03/27/[address]: Samir Thurston DO : 1940 BED: DIS: 03/27/2022 SPEC #: [id number] RECD: 03/27/22 15:14 STATUS: RACHEL REQ #: [id number] DEMETRIA: 03/27/22 09:[address]: Samir Thurston DEPT: Surgical Specimen RECD BY: Kadi Buck ENTERED: 03/27/22 15:14 SP TYPE: SKI OT DR: Tory Pena APRN Tissues: 1 - SKIN BIOPSY(SHAVE/PUNCH) Procedures: SKIN LEVEL 4 Comments: [id number]
== END 2022-03-27 12:21 | disposition home or self-care (01) ==
LOC: LBN 12:20
PROVIDERS: PCP Nurse Practitioner Adult Health; Visit Provider Otolaryngology Otolaryngology/Facial Plastic Surgery
DX: L57.0 Actinic keratosis (principal)
CPT/HCPCS: 88305

== ENCOUNTER → 2022-08-20 02:03 | Outpatient (CLI) | payer MEDICARE, BC, SELFPAY ==
--- NOTE | 2022-08-20 08:45 | DI.DEXA_ITS ---
Exam(s) XR DEXA BONE DENSITY W/WO ZAID EXAM: XR DEXA BONE DENSITY W/WO ZAID CLINICAL HISTORY: assess bones, ?progression of osteopeniA,CHRONIC STEROID USE,M85.88 TECHNIQUE: COMPARISON: CT CT ABDOMEN PELVIS W from 01/04/2022 Comparison examination is 03/16/2017. FINDINGS: Lateral Spine Image: There is a stable mild anterior wedging deformity of L1. Left hip: Total T-Score: -1.1. This compares to -1.3 on the prior examination. There is been and small increas e in the bone mineral density. Total Z-Score: -0.1 T- and Z-scores: Findings are consistent with osteopenia. Lumbar Spine: Total T-Score: -0.9. This is unchanged compared to the prior examination. Total Z-Score: 0.3 T- and Z-scores: Within normal limits. IMPRESSION: No evidence of osteoporosis.
== END ==
PROVIDERS: PCP Nurse Practitioner Adult Health; Visit Provider Nurse Practitioner Adult Health
DX: M85.88 Other specified disorders of bone density and structure, other site; Z13.820 Encounter for screening for osteoporosis
CPT/HCPCS: 77080

== ENCOUNTER 2022-08-28 15:14 | Outpatient (REF) | payer MEDICARE, BC, SELFPAY ==
--- NOTE | 2022-08-28 09:56 | SKI_PTH ---
PATIENT: Gage Arita JR LOC: [facility] U#:[id number] AGE/SX: 82/M ROOM: RE08/28/[address]: Samir Thurston DO : 1940 BED: DIS: 08/28/2022 SPEC #: [id number] RECD: 08/28/22 17:18 STATUS: RACHEL REQ #: [id number] DEMETRIA: 08/28/22 09:[address]: Samir Thurston DEPT: Surgical Specimen RECD BY: Kadi Buck ENTERED: 08/28/22 17:19 SP TYPE: GIL WALKER DR: Tory Pena APRN Tissues: 1 - SKIN BIOPSY(SHAVE/PUNCH) 2 - SKIN BIOPSY(SHAVE/PUNCH) Procedures: SKIN LEVEL 4 Comments: [id number]
== END 2022-08-28 15:15 | disposition home or self-care (01) ==
LOC: LBN 15:14
PROVIDERS: PCP Nurse Practitioner Adult Health; Visit Provider Otolaryngology Otolaryngology/Facial Plastic Surgery
DX: L82.1 Other seborrheic keratosis (principal)
CPT/HCPCS: 88305

== ENCOUNTER 2022-10-21 03:15 | Outpatient (CLI) | payer MEDICARE, BC, SELFPAY ==
[2022-10-21 09:58] LABS: Anion Gap 4.3 mmol/L (3-11); BUN 16 mg/dL (7-18); CO2 31.7 mmol/L (21.0-32.0); CREATININE 0.9 mg/dL (0.70-1.30); Calcium 9.2 mg/dL (8.5-10.1); Calculated LDL 87 mg/dL (<100); Chloride 106 mmol/L (98-107); Cholesterol 187 mg/dL (<200); Folate 17.6 ng/mL (8.6-20.0); Glucose 92 mg/dL (74-106); HDL Cholesterol 63 mg/dL (40-60); Potassium 3.7 mmol/L (3.5-5.1); Sodium 142 mmol/L (136-145); TSH (W/Ref FT4) 1.94 uIU/mL (0.36-3.74); Triglyceride 187 mg/dL (<150); Vitamin B12 394 pg/mL (193-986)
== END 2022-10-21 03:16 | disposition home or self-care (01) ==
LOC: LBO 03:15
PROVIDERS: PCP Nurse Practitioner Adult Health; Visit Provider Nurse Practitioner Adult Health
DX: E03.9 Hypothyroidism, unspecified (principal); E53.8 Deficiency of other specified B group vitamins; E78.5 Hyperlipidemia, unspecified; I10 Essential (primary) hypertension; I48.91 Unspecified atrial fibrillation; Z13.220 Encounter for screening for lipoid disorders; Z51.81 Encounter for therapeutic drug level monitoring
CPT/HCPCS: 36415; 80048; 80061; 82607; 82746; 84443

== ENCOUNTER 2022-11-19 14:42 | Outpatient (REF) | payer MEDICARE, BC, SELFPAY | END 2022-11-19 14:43 | disposition home or self-care (01) | LOC: LBN 14:42 | PROVIDERS: PCP Nurse Practitioner Adult Health; Visit Provider Family Medicine | DX: R35.0 Frequency of micturition (principal); R39.15 Urgency of urination | CPT/HCPCS: 87086 ==

== ENCOUNTER 2023-10-08 08:23 | Emergency (ER) | payer MEDICARE, BC, SELFPAY ==
--- NOTE | 2023-10-08 08:15 | RT.EKG_ITS ---
APPROVED REPORT Exam: Resting ECG Reason for Exam: Chest tightness Patient Location: E HR:87 bpm ECG Measurements Heart Rate 87 AXIS ID 211 P 50 QRSd 154 QRS -26 QT 420 T -11 QTc 501 Conclusion Sinus rhythm...normal P axis, V-rate 60- 99 Multiple ventricular premature complexes...V complexes w/ short R-R intervls Right bundle branch block...QRSd>120, terminal axis(90,270) sinus rhythm, normal axis, normal intervals, PVCs, RBBB
[2023-10-08 08:23] VITALS: BP 168/84; PULSE 87; RESP 18; TEMP 37.6; O2SAT 92
[2023-10-08 08:50] LABS: Lactate 1.2 mmol/L (0.6-1.4)
[2023-10-08 08:51] LABS: Abs Immature Grans 0.06 10^3/uL (0.0-0.06); Absolute Basophil Count 0.04 10^3/uL (0.0-0.2); Absolute Eosinophil Count 0.05 10^3/uL (0.0-0.7); Absolute Lymphocyte Count 0.28 10^3/uL (1.2-3.4); Absolute Monocyte Count 0.79 10^3/uL (0.1-0.8); Absolute Neutrophil Count 10.61 10^3/uL (1.2-6.7); Basophils % 0.3; Eosinophils % 0.4; HCT 47.8 % (40.0-50.0); HGB 15.7 g/dL (13.5-17.5); Immature Grans % 0.5; Lymphocytes % 2.4; MCH 31.5 pg (27.0-33.0); MCHC 32.8 % (32.0-36.0); MCV 96 fL (80-95); MPV 10.6 fL (8.0-11.0); Monocytes % 6.7; Neutrophils % 89.7; Platelet Count 170 10^3/uL (130-400); RBC 4.99 10^6/uL (4.36-5.78); RDW 12.9 % (11.8-14.1); RDW-SD 45.3 fL; WBC 11.83 10^3/uL (4.4-10.8)
[2023-10-08 09:00] VITALS: BP 182/84; PULSE 82
--- NOTE | 2023-10-08 09:08 | W.ED.GENAD ---
Discharge Plan Disposition Patient Disposition: Home Discharge Details Clinical Impression: Influenza A, Gross hematuria, Acute UTI Primary Care Provider: Tory Pena ED Provider: Kadi Robles Home Meds and New Rx's Prescriptions: New metoclopramide HCl [Reglan] 10 mg tablet 10 mg PO Q6H PRNQty: 10 0RF oseltamivir [Tamiflu] 75 mg capsule 75 mg PO Q12H 5 Days Qty: 10 0RF nitrofurantoin monohyd/m-cryst [Macrobid] 100 mg capsule 100 mg PO BID 7 Days Qty: 14 0RF Rx Instructions: must administer with a meal/food Continued levothyroxine 112 mcg tablet 112 mcg PO DAILY Qty: 90 3RF sildenafil [Viagra] 50 mg tablet 25 - 50 mg PO DAILY PRN (Reason: sexual activity) Qty: 30 0RF Rx Instructions: administer 30 minutes to 4 hours before activity magnesium 250 mg tablet 250 mg PO DAILY albuterol sulfate [ProAir HFA] 90 mcg/actuation HFA aerosol inhaler 2 puff Inhalation Q4H PRN Qty: 3 3RF Fiber Therapy(psyl seed-sugar) Powder 1 tsp PO BID cetirizine [All Day Allergy (cetirizine)] 10 mg tablet 10 mg PO DAILY PRN (DME) syringe 21G, 1 inch See Rx Instructions .Route .MEDSUPPLY Qty: 6 0RF Rx Instructions: As directed for monthly B12 injections omeprazole 40 mg capsule,delayed release(DR/EC) 40 mg PO DAILY Qty: 60 0RF multivitamin [Multi-Day] 1 EACH tablet 1 ea PO DAILY acetaminophen [Acetaminophen Extra Strength] 500 MG tablet 500 mg PO PRN prednisone 5 MG tablet 5 mg PO DAILY Patient Comments: 07/09/16- 5mg tab daily. NC 02/09/17 Rheumatology [facility] Decrease by 1/2 mg Q 2-4 weeks depending on how pt feels Rx Instructions: Rheumatology [facility] dofetilide [Tikosyn] 500 MCG capsule 500 mcg PO BID calcium citrate 250 MG tablet 250 mg PO DAILY cholecalciferol (vitamin D3) [Vitamin D3] 25 mcg (1,000 unit) capsule 1,000 unit PO Q OTHER DAY cyanocobalamin (vitamin B-12) 1,000 mcg/mL solution 1,000 mcg IM QMONTH Qty: 10 0RF Rx Instructions: Fatigue & B12 deficiency azelastine 137 mcg (0.1 %) aerosol,spray 2 spray NU BID Qty: 30 2RF montelukast 10 mg tablet 10 mg PO QHS Qty: 90 3RF codeine-guaifenesin 10-100 mg/5 mL liquid 5 ml PO Q6H PRN (Reason: cold symptoms) Qty: 120 0RF apixaban 5 mg tablet 5 mg PO BID Qty: 180 3RF lisinopril 5 mg tablet 2.5 mg PO DAILY Qty: 45 3RF Hold Instructions: Home Medication placed on hold at Doctor's office Discharge Instructions Instructions: Urinary Tract Infection in Men (ED), Hematuria (ED), H1N1 Influenza (ED) Additional Instructions: Take the antibiotic as prescribed for suspected urinary tract infection, pending urine culture at this time You have the flu and high fever, take Tylenol 500 mg every 4-6 hours while the fever persists, this is greater than 100.4 Do not exceed 3 g of Tylenol daily Make sure having at least eight 8 ounce glasses of water daily I recommend following up with your urologist and skipping 1 dose of your Eliquis this evening secondary to the blood in your urine Should you develop weakness, dizziness, or with any new concerns, please be reevaluated in the emergency department You may take Reglan as needed for nausea and vomiting Referrals: Tory Pena, [employer] [Primary Care Provider] - 2 days Medical Decision Making 83-year-old male, alert and oriented, temp of 101.1 in the emergency department, reports fatigue, has had some intermittent chest tightness with coughing, states cough is nonproductive. Has had blood in his urine since last evening. Patient is nontoxic in appearance, moist mucous membranes, lungs clear to auscultation bilaterally, cardiac rate rhythm regular Mild hypertension, alert and oriented, no acute distress, no hypoxia, ambulatory with steady gait, requesting discharge home Influenza A positive, will initiate Tamiflu secondary to age Patient having intermittent nausea, will supply Reglan for home Of note, patient is on Eliquis, he has gross hematuria, will hold Eliquis this evening as he appears to be well-controlled with his atrial fibrillation Suspect urinary tract infection, nitrate positive, gross hematuria, will treat with Macrobid as no evidence of pyelonephritis and patient has good renal function Pending urine culture at this time Has nephrolithiasis will refer back to urology for gross hematuria and nephrolithiasis, hemodynamically stable, return precautions reviewed, recheck in 24 to 48 hours recommended HPI General Date/Time Provider Initiated Documentation: 10/08/23 08:34. HPI Narrative: This 83-year-old male presents with report of fevers starting last evening. States he had an exposure to a sick contact last week, this grand children. Also has had cough and feeling tired. Denies any chest pain or shortness of breath. Denies known additional sick contacts. Blood in urine starting this morning. Reports some intermittent chest tightness with coughing. Denies any persistent chest pain, calf pain or swelling, dizziness, or confusion. Denies any traumatic injuries. Related Data Home Medications Medication Instructions Recorded Confirmed acetaminophen 500 mg tablet 500 mg PO PRN 12/12/12 10/08/23 (Acetaminophen Extra Strength) multivitamin (Multi-Day tablet) 1 ea PO DAILY 12/12/12 10/08/23 prednisone 5 mg tablet 5 mg PO DAILY 02/10/13 10/08/23 dofetilide 500 mcg capsule 500 mcg PO BID 06/22/13 10/08/23 (Tikosyn) calcium citrate 250 mg PO DAILY 06/17/17 10/08/23 magnesium 250 mg tablet 250 mg PO DAILY 05/17/20 10/08/23 cholecalciferol (vitamin D3) 25 1,000 unit PO Q OTHER DAY 01/17/21 10/08/23 mcg (1,000 unit) capsule (Vitamin D3) albuterol sulfate 90 mcg/actuation 2 puff inhalation Q4H PRN ##3 10/31/21 10/08/23 aerosol inhaler (ProAir HFA) psyllium seed (sugar) oral powder 1 tsp PO BID 01/05/22 10/08/23 (Fiber Therapy (psyllium seed-sucrose) oral powder) cetirizine 10 mg tablet (All Day 10 mg PO DAILY PRN 04/24/22 10/08/23 Allergy (cetirizine)) cyanocobalamin (vitamin B-12) 1,000 mcg IM QMONTH #10 mL 09/07/22 10/08/23 1,000 mcg/mL injection solution levothyroxine 112 mcg tablet 112 mcg PO DAILY #90 tab-caps 10/26/22 10/08/23 sildenafil 50 mg tablet (Viagra) 25 - 50 mg (0.5 - 1 x 50 mg) PO 10/26/22 10/08/23 DAILY PRN sexual activity #30 tabs syringe 21G, 1 inch #6 ea 04/29/23 09/07/23 azelastine 137 mcg (0.1 %) nasal 2 spray NU BID #30 mL 05/24/23 10/08/23 spray aerosol montelukast 10 mg tablet 10 mg PO QHS #90 tabs 08/05/23 10/08/23 codeine 10 mg-guaifenesin 100 mg/5 5 ml PO Q6H PRN cold symptoms #120 08/09/23 10/08/23 mL oral liquid mL apixaban 5 mg tablet 5 mg PO BID PAROXYSMAL AFIB #180 09/01/23 10/08/23 tabs lisinopril 5 mg tablet 2.5 mg (1/2 x 5 mg) PO DAILY #45 09/01/23 10/08/23 tabs omeprazole 40 mg capsule,delayed 40 mg PO DAILY #60 caps 09/07/23 10/08/23 release metoclopramide HCl 10 mg tablet 10 mg PO Q6H PRN #10 tabs 10/08/23 (Reglan) nitrofurantoin 100 mg PO BID 7 days #14 caps 10/08/23 monohydrate/macrocrystals 100 mg capsule (Macrobid) oseltamivir 75 mg capsule (Tamiflu) 75 mg PO Q12H 5 days #10 caps 10/08/23 Previous Rx's Medication Instructions Recorded albuterol sulfate 90 mcg/actuation 2 puff inhalation Q4H PRN ##3 10/31/21 aerosol inhaler (ProAir HFA) cyanocobalamin (vitamin B-12) 1,000 mcg IM QMONTH #10 mL 09/07/22 1,000 mcg/mL injection solution levothyroxine 112 mcg tablet 112 mcg PO DAILY #90 tab-caps 10/26/22 sildenafil 50 mg tablet (Viagra) 25 - 50 mg (0.5 - 1 x 50 mg) PO 10/26/22 DAILY PRN sexual activity #30 tabs syringe 21G, 1 inch #6 ea 04/29/23 azelastine 137 mcg (0.1 %) nasal 2 spray NU BID #30 mL 05/24/23 spray aerosol montelukast 10 mg tablet 10 mg PO QHS #90 tabs 08/05/23 codeine 10 mg-guaifenesin 100 mg/5 5 ml PO Q6H PRN cold symptoms #120 08/09/23 mL oral liquid mL apixaban 5 mg tablet 5 mg PO BID PAROXYSMAL AFIB #180 09/01/23 tabs lisinopril 5 mg tablet 2.5 mg (1/2 x 5 mg) PO DAILY #45 09/01/23 tabs omeprazole 40 mg capsule,delayed 40 mg PO DAILY #60 caps 09/07/23 release metoclopramide HCl 10 mg tablet 10 mg PO Q6H PRN #10 tabs 10/08/23 (Reglan) nitrofurantoin 100 mg PO BID 7 days #14 caps 10/08/23 monohydrate/macrocrystals 100 mg capsule (Macrobid) oseltamivir 75 mg capsule (Tamiflu) 75 mg PO Q12H 5 days #10 caps 10/08/23 Allergies Allergy/AdvReac Type Severity Reaction Status Date / Time aspirin Allergy Severe sob Verified 10/08/23 08:29 Cephalosporins Allergy Intermediate hives Verified 10/08/23 08:29 clopidogrel bisulfate Allergy Intermediate SOB Verified 10/08/23 08:29 [From Plavix] Penicillins Allergy Intermediate childhood Verified 10/08/23 08:29 rxn DUST Allergy Unknown Uncoded 10/08/23 08:29 General Stated Complaint: Fever AUBREY: 3 PFSH All Active Problems (Updated 10/08/23 @ 11:20 by ERIBERTO Miranda) Acute UTI (Acute) Gross hematuria (Acute) Influenza A (Acute) Erectile dysfunction (Acute ~2021) s/p prostate surgery [place] trial Viagra Disrupted sleep-wake cycle (Acute) Melatonin trial; keep naps to 45min B12 deficiency (Acute ~2018) low normal On apixaban therapy (Chronic) Re-started 07/13/2019 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) [facility] [place] (Hans Mittal); RX Flomax NEG cystoscopy 06/202012/04/22 REZUM Procedure [facility] Atrial fibrillation (Chronic 10/15/11) PAF; Warfarin; [facility] cardiology; ablation and PVI x2 02/2013 ECHO 01/2019 EF 57% Zio 13-day 11/2018, no AFib seen Medical History (Updated 10/08/23 @ 11:20 by ERIBERTO Miranda) Sinus infection (~11/2022) Seborrheic keratoses, inflamed (~08/2022) 08/28/22 Shaved bx R religious diagnosed through bx Age-related nuclear cataract of both eyes H/O subconjunctival hemorrhage related to eliquis. 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 Management tight systolic BP control 90-120mmHg goal. 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 with INR goal of 2.0-3.0 (10/15/11) COUMADIN BEGAN 01/04/2007, restarted 03/21/19, discontinued 07/13/2019 for Apixaban Kidney stone (02/10/13) Generalized anxiety disorder (10/15/11) W/ INSOMNIA, EXACERBATED WHEN IN A FIB Carpal tunnel syndrome (01/24/15) Basal cell carcinoma (01/24/15) [facility] Derm annually (Mazin) R lat intraorbital fold L pre-auricular cheek (2013) Forehead & L cheek (2009) Asthma (01/24/15) Actinic keratosis (01/24/15) [facility] Derm (Mazin) chronic steroid use Asthma HTN (hypertension) Lower urinary tract symptoms (LUTS) GERD (gastroesophageal reflux disease) Benign neoplasm of large intestine Aneurysm, ascending aorta A-fib JOSÉ MANUEL (generalized anxiety disorder) Surgical History S/P colonoscopy (09/23/22) [facility] w/ Dr. Mora S/P right inguinal herniorrhaphy (~02/18/21) Dr Mora Conjunctival lesion 12/05/19 [facility]. removal of cyst. S/P ablation of atrial fibrillation (02/08/13) knee injection (11/21/15) [facility] FLORES Repair of inguinal hernia (10/15/15) LEFT; Dr. Aleks Mora Cystoscopy (01/12/17) Dr [facility] Colonscopy w/ Bx (08/12/16) Cholecystectomy (~2003) Dr Santana Mora Bronchoscopy (01/23/15) with bx Family History Mother CAD (coronary artery disease) Father , 90's Glaucoma Prostate cancer Sister , 77 heart and pulmonary issues CAD (coronary artery disease) Brother Prostate cancer Social History Smoking/Tobacco Use Status: Former Tobacco Use Tobacco: How many years used: 6 Smoking risk assessment performed?: Yes Alcohol Intake: current Alcohol Intake frequency: 0-2 drinks per day Alcohol type: wine Drug use: Never Substance use type: does not use Details: Quit smoking 55 years ago. Drinks 6-7oz wine every night. Adopted: No Caregiver/Support person: No Foster care: No Household members: spouse Housing: house Number of Children: 2 number of grandchildren: 4 Communication Needs: None Education Level: college Details: Bachelor's Do you need help understanding health information?: Often current occupation: retired Pets and animals: Yes (1) Pets and animals: dog(s) Sexually active: Yes Do you think of yourself as: straight/heterosexual Current gender identity: male What is your relationship status?: How often do you talk on the phone with friends or family?: three or more times per week How often do you get together with friends or relatives?: once per week Do you belong to any clubs or organized social groups?: yes Panel score (0-1 are the most socially isolated patients): 3 What type of physical activity do you participate in: bicycling, regular exercise and other Details: Pilates Twice Weekly Classes Duration: 45-60 minutes/day Frequency: 3-4 times per week Seatbelt use: always Helmet use: Yes Drive intox or ride w/intox auto crane driver: No Working smoke detector in home: Yes Fire extinguisher in home: Yes Carbon monox detector in home: Yes Do you feel safe at home: Yes Do you feel safe in your relationship?: Yes Course Vital Signs Vital signs: Vital Signs Temperature 37.6 C H 10/08/23 08:23 Pulse 87 10/08/23 08:23 Respiratory Rate 18 10/08/23 08:23 Blood Pressure 168/84 H 10/08/23 08:23 Pulse Oximetry 92 10/08/23 08:23 Temperature 37.6 C H 10/08/23 08:23 Temperature Source Oral 10/08/23 08:23 Pulse 87 10/08/23 08:23 Respiratory Rate 18 10/08/23 08:23 Respiratory Effort Normal 10/08/23 08:27 Blood Pressure 168/84 H 10/08/23 08:23 Pulse Oximetry 92 10/08/23 08:23 Oxygen Delivery Method Room Air 10/08/23 08:23 Oxygen Flow Rate 0 10/08/23 08:23 Lab/Test Results Lab/Test Results: 10/08/23 08:40 Blood Blood Culture - Pending 10/08/23 08:40 Blood Blood Culture - Pending Laboratory Tests Range/Units 10/08/23 08:41 WBC (4.4-10.8) 10^3/uL 11.83 H RBC (4.36-5.78) 10^6/uL 4.99 Hgb (13.5-17.5) g/dL 15.7 Hct (40.0-50.0) % 47.8 MCV (80-95) fL 96 H MCH (27.0-33.0) pg 31.5 MCHC (32.0-36.0) % 32.8 RDW (11.8-14.1) % 12.9 Plt Count (130-400) 10^3/uL 170 MPV (8.0-11.0) fL 10.6 Immature Gran % 0.5 Neutrophils % 89.7 Lymphocytes % 2.4 Monocytes % 6.7 Eosinophils % 0.4 Basophils % 0.3 Nucleated RBC % (0.0-0.3) % 0.0 Absolute Neutrophils (1.2-6.7) 10^3/uL 10.61 H Absolute Lymphocytes (1.2-3.4) 10^3/uL 0.28 L Absolute Monocytes (0.1-0.8) 10^3/uL 0.79 Absolute Eosinophils (0.0-0.7) 10^3/uL 0.05 Absolute Basophils (0.0-0.2) 10^3/uL 0.04 VBG Lactate (0.6-1.4) mmol/L 1.2
[2023-10-08 09:15] LABS: ALT 26 U/L (16-63); AST 16 U/L (15-37); Albumin 3.9 g/dL (3.4-5.0); Alkaline Phosphatase 55 U/L (46-116); Anion Gap 9.5 mmol/L (3-11); BUN 16 mg/dL (7-18); Bilirubin, Total 0.8 mg/dL (0.2-1.0); CO2 27.5 mmol/L (21.0-32.0); Calcium 9.1 mg/dL (8.5-10.1); Chloride 104 mmol/L (98-107); Estimated GFR 75.14 (mL/min/1.73m2); Glucose 148 mg/dL (74-106); Potassium 3.6 mmol/L (3.5-5.1); Sodium 141 mmol/L (136-145); Total Protein 7.4 g/dL (6.4-8.2); Troponin I < 50 ng/L (<or=60)
[2023-10-08 09:22] LABS: Bilirubin Small (Negative); Blood Large (Negative); Clarity Cloudy (Clear); Glucose Negative (Negative); Ketones 40 mg/dL (Negative); Leukocyte Esterase Negative (Negative); Nitrite Positive (Negative); pH 6.5 (5-8)
[2023-10-08] MEDS: ACETAMINOPHEN 1,000 MG/100 ML BTL 400 MG IVPB (09:25)
[2023-10-08 09:30] LABS: COVID-19 PCR Negative (Negative); Influenza A PCR Positive (Negative); Influenza B PCR Negative (Negative); RSV PCR Negative (Negative)
--- NOTE | 2023-10-08 09:30 | DI.CT_ITS ---
Exam(s) CT ABDOMEN PELVIS WO EXAM: CT ABDOMEN PELVIS WO CLINICAL HISTORY: gross hematuria. TECHNIQUE: Imaging Protocol: Axial computed tomography images with coronal and sagittal reformatted images were created and reviewed CONTRAST MATERIAL: Intravenous: none Oral: None COMPARISON: CT CT ABDOMEN PELVIS W from 01/04/2022 FINDINGS: VISUALIZED LUNG BASES: There is persistent pleural based infiltrate in the posterior basal segment of the right lower lobe, unchanged from December 2021 and not associated with pleural effusion nor overlyi ng rib destruction. Milder increased markings are noted in the posterior basal segment of the left l ower lobe, slightly more so than previous but benign appearance and not associated with pleural effus ion.. ABDOMEN: There is no ascites. LIVER: There are no obvious focal hepatic lesions evident of this noninfused study. GALLBLADDER/BILIARY: Gallbladder is again noted be surgically absent. CBD is not dilated. PANCREAS: No evidence of pancreatic mass nor dilatation of the pancreatic duct. Calcifications again noted in the mid aspect of the pancreas which appears to be within the splenic artery, unchanged. SPLEEN: Spleen is not enlarged. No obvious intrasplenic lesions. ADRENALS: There are no significant adrenal masses. KIDNEYS:There is a 3 millimeter calculus in the superior pole calyx of the right kidney and a smaller 2 millimeter calculus towards the lower pole . no significant solid masses in the right kidney. In the opposite-left kidney there is a solitary nonobstructive calculus measuring 3 mm, similar to previ ous. No hydronephrosis. No hydroureter. There are no radiopaque calculi seen in the lower ureters. No radiopaque calculi evident in the urinary bladder. The bladder base is indented by large prosta te gland. Bladder is mildly distended ABDOMINAL AORTA: Abdominal aorta is not significantly enlarged. LYMPH NODES: There is no retroperitoneal nor paraaortic adenopathy. ABDOMINAL WALL: No evidence of significant anterior abdominal wall nor inguinal hernia. GI: There is no evidence of bowel obstruction, free air, nor abscess. PELVIS: LYMPH NODES: There is no intrapelvic nor inguinal adenopathy. GI: No evidence of appendicitis.Sigmoid diverticulosis. No evidence of acute diverticulitis. URINARY BLADDER: Indented by enlarged lobulated prostate gland. No radiopaque calculi seen within th e bladder lumen. REPRODUCTIVE: Enlarged and lobulated prostate gland which is also partially calcified. OSSEOUS: No significant osseous lesions. Mild compression fracture of L1 which is unchanged from prior CT scan of December 2021. IMPRESSION: 1. Bilateral nephrolithiasis again noted. However, there is no hydronephrosis nor hydroureter. No c alculi seen in the lower ureters nor within the urinary bladder. 2. Enlarged prostate gland which indents the bladder base. 3. Gallbladder again noted be surgically absent. Biliary tree is not significantly dilated. 4. Stable right lung base infiltrate without significant change compared to prior CT scan of 01/04/22 . No pleural effusions. Called by myself to ER provider. RADIATION DOSE DELIVERED: Total DLP DATA REPOSITORY: All CT scans at this facility are submitted to the National Radiology Data Registry (NRDR) Dose Index Registry (DIR) with the [employer] (ACR). RADIATION OPTIMIZATION: All CT scans at this facility use at least one of these dose optimization te chniques: automated exposure control; mA and/or kV adjustment per patient size (includes targeted exa ms where dose is matched to clinical indication); or iterative reconstruction.
[2023-10-08 09:35] LABS: Bacteria Few HPF (Negative); C & S Indicated? Yes; Casts Negative LPF (Negative); Crystals Negative HPF (Negative); Epithelial Cells Few HPF (Negative); Mucus Trace (Negative); RBC >50 HPF (0-2)
--- NOTE | 2023-10-08 10:20 | DI.RAD_ITS ---
Exam(s) XR CHEST 2V PA LATERAL EXAM: XR CHEST 2V PA LATERAL CLINICAL HISTORY: cough, fever TECHNIQUE: 2D digital imaging was performed. COMPARISON: CR XR CHEST 2V PA LATERAL from 12/15/2019 FINDINGS: HEART: Normal size. Aorta: Tortuous. PULMONARY VASCULATURE: Normal. LUNGS: Clear. PLEURAL SPACE: No pleural effusion or pneumothorax. BONE:Old bilateral rib fractures. Soft tissues: Unremarkable. IMPRESSION: No acute abnormality. DATA REPOSITORY: RADIATION DOSE DELIVERED:
[2023-10-08 10:30] VITALS: BP 143/78; PULSE 82; O2SAT 94
[2023-10-08] MEDS: Dofetilide 250 MCG CAP 500 MCG PO (11:19)
== END 2023-10-08 11:23 | disposition home or self-care (01) ==
PROVIDERS: Emergency Provider Physician Assistant; PCP Nurse Practitioner Adult Health
DX: R50.9 Fever, unspecified (principal); N39.0 Urinary tract infection, site not specified; J09.X9 Influenza due to identified novel influenza A virus with other manifestations; J06.9 Acute upper respiratory infection, unspecified
CPT/HCPCS: 36415; 80053; 87040; 87637; 93005; 96374; 99284; 71046; 74176; 81003; 81015; 83605; 83735; 84484; 85025; 87086; 93010; 99283; J0131

== ENCOUNTER 2023-10-15 16:20 | Outpatient (REF) | payer MEDICARE, BC, SELFPAY ==
[2023-10-15 19:06] LABS: Bilirubin Negative (Negative); Blood Negative (Negative); Clarity Clear (Clear); Glucose Negative (Negative); Ketones Negative (Negative); Leukocyte Esterase Negative (Negative); Nitrite Negative (Negative); Specific Gravity 1.015 (1.005-1.025); Urobilinogen 0.2 mg/dL (Up to 0.2); pH 5.5 (5-8)
== END 2023-10-15 16:21 | disposition home or self-care (01) ==
LOC: LBN 16:20
PROVIDERS: PCP Nurse Practitioner Adult Health; Visit Provider Emergency Medicine
DX: R31.0 Gross hematuria (principal)
CPT/HCPCS: 81003; 87086

== ENCOUNTER 2023-10-28 04:40 | Outpatient (CLI) | payer MEDICARE, BC, SELFPAY ==
[2023-10-28 09:54] LABS: Vitamin D 25 Total 24.4 ng/mL (30-100)
[2023-10-28 09:57] LABS: ALT 31 U/L (16-63); AST 18 U/L (15-37); Albumin 3.5 g/dL (3.4-5.0); Alkaline Phosphatase 52 U/L (46-116); Anion Gap 8.5 mmol/L (3-11); BUN 19 mg/dL (7-18); Bilirubin, Total 0.7 mg/dL (0.2-1.0); CO2 29.5 mmol/L (21.0-32.0); CREATININE 0.9 mg/dL (0.70-1.30); Calcium 9.1 mg/dL (8.5-10.1); Calculated LDL 82 mg/dL (<100); Chloride 106 mmol/L (98-107); Cholesterol 153 mg/dL (<200); Estimated GFR 85.27 (mL/min/1.73m2); Glucose 94 mg/dL (74-106); HDL Cholesterol 43 mg/dL (40-60); Potassium 3.6 mmol/L (3.5-5.1); Sodium 144 mmol/L (136-145); TSH (W/Ref FT4) 1.68 uIU/mL (0.36-3.74); Total Protein 7.1 g/dL (6.4-8.2); Triglyceride 142 mg/dL (<150); Vitamin B12 660 pg/mL (193-986)
== END 2023-10-28 04:41 | disposition home or self-care (01) ==
LOC: LBO 04:41
PROVIDERS: PCP Nurse Practitioner Adult Health; Referring Provider Nurse Practitioner Adult Health; Visit Provider Nurse Practitioner Adult Health
DX: E53.8 Deficiency of other specified B group vitamins (principal); M85.80 Other specified disorders of bone density and structure, unspecified site; I48.91 Unspecified atrial fibrillation; I10 Essential (primary) hypertension
CPT/HCPCS: 36415; 80053; 80061; 82306; 82607; 84443

== ENCOUNTER 2023-11-04 10:05 | Outpatient (REF) | payer MEDICARE, BC, SELFPAY | END 2023-11-04 10:06 | disposition home or self-care (01) | LOC: LBN 10:05 | PROVIDERS: PCP Nurse Practitioner Adult Health; Visit Provider Nurse Practitioner Adult Health | DX: R35.0 Frequency of micturition (principal); R30.0 Dysuria | CPT/HCPCS: 87086 ==

== ENCOUNTER → 2023-11-30 03:30 | Outpatient (CLI) | payer MEDICARE, BC, SELFPAY ==
--- NOTE | 2023-11-30 10:20 | DI.RAD_ITS ---
Exam(s) XR CHEST 2V PA LATERAL EXAM: XR CHEST 2V PA LATERAL CLINICAL HISTORY: interval F/U,?resolution of lll infiltrate. TECHNIQUE: 2D digital imaging was performed. COMPARISON: CR XR CHEST 2V PA LATERAL from 10/08/2023 FINDINGS: 2 views: Heart size is normal. The mediastinum is not widened. Lungs are clear. No infiltrates nor pleural effusions. Healed fracture of the left 5th rib again noted. IMPRESSION: No acute pulmonary findings. DATA REPOSITORY: RADIATION DOSE DELIVERED:
== END ==
PROVIDERS: PCP Nurse Practitioner Adult Health; Visit Provider Nurse Practitioner Adult Health
DX: R91.8 Other nonspecific abnormal finding of lung field (principal)
CPT/HCPCS: 71046

== ENCOUNTER 2024-05-25 10:19 | Outpatient (CLI) | payer MEDICARE, BC, SELFPAY ==
--- NOTE | 2024-05-25 10:58 | DI.RAD_ITS ---
Exam(s) XR CHEST 2V PA LATERAL EXAM: XR CHEST 2V PA LATERAL CLINICAL HISTORY: Lt lower zone lobar pneumonia, J18.1 TECHNIQUE: 2D digital imaging was performed of the chest. Three images were obtained. PA and later al views were obtained. COMPARISON: CR XR CHEST 2V PA LATERAL from 11/30/2023 FINDINGS: MEDIASTINUM: Normal. HEART: Normal. PULMONARY VASCULATURE: There is tortuosity of the thoracic aorta. LUNGS: Clear. PLEURAL SPACE: No pleural effusion or pneumothorax. BONE:Within normal limits for the patient's age. OTHER FINDINGS:Normal. IMPRESSION: No acute pulmonary findings. DATA REPOSITORY: RADIATION DOSE DELIVERED:
== END 2024-05-25 10:39 ==
PROVIDERS: PCP Nurse Practitioner Adult Health; Visit Provider Family Medicine
DX: J18.1 Lobar pneumonia, unspecified organism (principal)
CPT/HCPCS: 71046

== ENCOUNTER 2024-06-30 01:22 | Outpatient (CLI) | payer MEDICARE, BC, SELFPAY ==
[2024-06-30 08:39] LABS: Estimated GFR 75.14 (mL/min/1.73m2)
== END 2024-06-30 01:23 | disposition home or self-care (01) ==
LOC: LBO 01:22
PROVIDERS: PCP Nurse Practitioner Adult Health; Visit Provider Urology
DX: R31.0 Gross hematuria (principal)
CPT/HCPCS: 36415; 82565

== ENCOUNTER 2024-10-30 03:17 | Outpatient (CLI) | payer MEDICARE, BC, SELFPAY ==
[2024-10-30 08:38] LABS: ALT 26 U/L (16-63); AST 20 U/L (15-37); Albumin 3.7 g/dL (3.4-5.0); Alkaline Phosphatase 60 U/L (46-116); Anion Gap 4.5 mmol/L (3-11); BUN 24 mg/dL (7-18); Bilirubin, Total 0.84 mg/dL (0.2-1.0); CO2 30.5 mmol/L (21.0-32.0); CREATININE 0.9 mg/dL (0.70-1.30); Calcium 9.4 mg/dL (8.5-10.1); Calculated LDL 83 mg/dL (<100); Chloride 110 mmol/L (98-107); Cholesterol 157 mg/dL (<200); Estimated GFR 84.74 (mL/min/1.73m2); Folate 13.1 ng/mL (8.6-20.0); Glucose 93 mg/dL (74-106); HDL Cholesterol 59 mg/dL (40-60); Potassium 3.9 mmol/L (3.5-5.1); Sodium 145 mmol/L (136-145); TSH (W/Ref FT4) 1.44 uIU/mL (0.36-3.74); Triglyceride 75 mg/dL (<150); Vitamin B12 478 pg/mL (193-986); Vitamin D 25 Total 22.6 ng/mL (30-100)
== END 2024-10-30 03:18 | disposition home or self-care (01) ==
LOC: LBO 03:17
PROVIDERS: PCP Nurse Practitioner Adult Health; Referring Provider Nurse Practitioner Adult Health; Visit Provider Nurse Practitioner Adult Health
DX: I10 Essential (primary) hypertension (principal); E78.00 Pure hypercholesterolemia, unspecified; E03.9 Hypothyroidism, unspecified; E53.8 Deficiency of other specified B group vitamins; M85.80 Other specified disorders of bone density and structure, unspecified site
CPT/HCPCS: 36415; 80053; 80061; 82306; 82607; 82746; 84443

== ENCOUNTER 2025-05-18 12:39 | Outpatient (REF) | payer MEDICARE, BC, SELFPAY ==
[2025-05-18 14:46] LABS: Abs Immature Grans 0.07 10^3/uL (0.0-0.06); HCT 44.9 % (40.0-50.0); HGB 14.9 g/dL (13.5-17.5); Immature Grans % 0.6 %; MCH 31.6 pg (27.0-33.0); MCHC 33.2 % (32.0-36.0); MCV 95 fL (80-95); MPV 11.7 fL (8.0-11.0); Platelet Count 188 10^3/uL (130-400); RBC 4.72 10^6/uL (4.36-5.78); RDW 13.1 % (11.8-14.1); RDW-SD 45.7 fL; WBC 10.94 10^3/uL (4.4-10.8)
[2025-05-18 14:56] LABS: Anion Gap 5.6 mmol/L (3-11); BUN 18 mg/dL (7-18); CO2 29.4 mmol/L (21.0-32.0); Calcium 8.9 mg/dL (8.5-10.1); Chloride 107 mmol/L (98-107); Estimated GFR 87.81 (mL/min/1.73m2); Glucose 94 mg/dL (74-106); Potassium 4.0 mmol/L (3.5-5.1); Sodium 142 mmol/L (136-145)
== END 2025-05-18 12:40 | disposition home or self-care (01) ==
LOC: LBN 12:39
PROVIDERS: PCP Nurse Practitioner Adult Health; Visit Provider Physician Assistant Medical
DX: R10.32 Left lower quadrant pain (principal)
CPT/HCPCS: 80048; 85025

== ENCOUNTER 2025-05-18 15:05 | Outpatient (CLI) | payer MEDICARE, BC, SELFPAY ==
--- NOTE | 2025-05-18 | DI.CT_ITS ---
Exam(s) CT ABDOMEN PELVIS W EXAM: CT ABDOMEN PELVIS W CLINICAL HISTORY: LEFT LOWER QUAD PAIN LT, R10.32. TECHNIQUE: Imaging Protocol: Axial computed tomography images with coronal and sagittal reformatted images were created and reviewed CONTRAST MATERIAL: Intravenous: Omnipaque-350 75cc Oral: None COMPARISON: CT CT ABDOMEN PELVIS WO from 10/08/2023 FINDINGS: VISUALIZED LUNG BASES: Again noted is a stable right lung base infiltrate in the posterior basal segment of the right lower lobe. This is unchanged from CT scan of 10/08/2023 and December 2021 and is again not associated with a pleural effusion nor overlying rib destruction. ABDOMEN: There is no ascites. LIVER: There are no focal hepatic lesions evident. No dilated intrahepatic ducts. GALLBLADDER/BILIARY: The gallbladder surgically absent. CBD is not dilated. PANCREAS: No evidence of pancreatic mass nor dilatation of the pancreatic duct. SPLEEN: Spleen is not enlarged. No obvious intrasplenic lesions. Splenic and portal veins are patent. ADRENALS: There are no significant adrenal masses. KIDNEYS:There are small bilateral nonobstructive calculi in the kidneys. There is a single 4 millimeter calculus in each kidney. No hydronephrosis nor hydroureter. No solid renal masses. ABDOMINAL AORTA: Calcified but not enlarged. LYMPH NODES:There is no retroperitoneal nor paraaortic adenopathy. ABDOMINAL WALL: No evidence of significant anterior abdominal wall nor inguinal hernia. GI: No evidence of small-bowel obstruction. The main findings are in the sigmoid. PELVIS: GI: No evidence of appendicitis.There is extensive sigmoid diverticulosis and there is evidence of acute diverticulitis in the mid sigmoid with perisigmoid streaking. There is no free air. No fluid collection-abscess at this time. LYMPH NODES: There is no intrapelvic nor inguinal adenopathy. REPRODUCTIVE: Moderately enlarged and lobulated prostate with some calcification therein. The prostate measures 5.5 cm wide. URINARY BLADDER: Mildly distended. Lobulated prostate indents the bladder base. No bladder lumen calculi noted OSSEOUS: There is a mild compression fracture at superior endplate of L1, not acute. This was evident on CT scan of 10/08/2023. IMPRESSION: 1. The main finding here is acute diverticulitis of the sigmoid. The culprit diverticulum appears to be on the superior wall of the sigmoid. There is no obvious perforation but there are phlegmonous changes in the adjacent fat. There is no formed abscess at this time. 2. Bilateral nonobstructive nephrolithiasis again noted. 3. Stable right lung base infiltrate without significant change compared December 2021. 4. Other findings as above. RADIATION DOSE DELIVERED: 519.67mGy.cm Total DLP DATA REPOSITORY: All CT scans at this facility are submitted to the National Radiology Data Registry (NRDR) Dose Index Registry (DIR) with the [employer] ([employer]). RADIATION OPTIMIZATION: All CT scans at this facility use at least one of these dose optimization techniques: automated exposure control; mA and/or kV adjustment per patient size (includes targeted exams where dose is matched to clinical indication); or iterative reconstruction.
[2025-05-18] MEDS: Barium Sulfate 2% W/V-Creamy Vanilla Smoothie 450 ML BTL PO ×2 (13:21→13:22)
[2025-05-18 13:57] LABS: Estimated GFR 84.74 (mL/min/1.73m2)
[2025-05-18] MEDS: Omnipaque 350 MG/ML 100 ML BTL 75 ML IJ (15:46)
== END 2025-05-18 15:25 ==
LOC: DI 15:05
PROVIDERS: PCP Nurse Practitioner Adult Health; Visit Provider Physician Assistant Medical
DX: K57.30 Diverticulosis of large intestine without perforation or abscess without bleeding (principal); N20.2 Calculus of kidney with calculus of ureter
CPT/HCPCS: 74177; 82565; J3490

== ENCOUNTER 2025-08-16 11:14 | Outpatient (CLI) | payer MEDICARE, BC, SELFPAY ==
[2025-08-16 11:23] LABS: Abs Immature Grans 0.06 10^3/uL (0.0-0.06); HCT 44.1 % (40.0-50.0); HGB 14.4 g/dL (13.5-17.5); Immature Grans % 0.6 %; MCH 31.1 pg (27.0-33.0); MCHC 32.7 % (32.0-36.0); MCV 95 fL (80-95); MPV 10.4 fL (8.0-11.0); Platelet Count 200 10^3/uL (130-400); RBC 4.63 10^6/uL (4.36-5.78); RDW 12.9 % (11.8-14.1); RDW-SD 45.1 fL; WBC 10.17 10^3/uL (4.4-10.8)
[2025-08-16 11:55] LABS: ALT 27 U/L (16-63); AST 20 U/L (15-37); Albumin 3.5 g/dL (3.4-5.0); Alkaline Phosphatase 63 U/L (46-116); Anion Gap 5.8 mmol/L (3-11); BUN 19 mg/dL (7-18); Bilirubin, Total 0.8 mg/dL (0.2-1.0); C-Reactive Protein < 0.50 mg/dL (<or=0.5); CO2 29.2 mmol/L (21.0-32.0); Calcium 9.0 mg/dL (8.5-10.1); Chloride 108 mmol/L (98-107); Glucose 105 mg/dL (74-106); Potassium 4.0 mmol/L (3.5-5.1); Sodium 143 mmol/L (136-145); Total Protein 6.9 g/dL (6.4-8.2)
== END 2025-08-16 11:15 | disposition home or self-care (01) ==
LOC: LBO 11:15
PROVIDERS: PCP Nurse Practitioner Adult Health; Visit Provider Nurse Practitioner Adult Health
DX: K57.92 Diverticulitis of intestine, part unspecified, without perforation or abscess without bleeding (principal)
CPT/HCPCS: 36415; 80053; 85025; 86140

== ENCOUNTER → 2025-08-31 02:41 | Outpatient (CLI) | payer MEDICARE, BC, SELFPAY ==
--- NOTE | 2025-08-31 07:00 | DI.RAD_ITS ---
Exam(s) XR SHOULDER RT COMPLETE 2+V EXAM: XR SHOULDER RT COMPLETE 2+V CLINICAL HISTORY: assess bony alignment; OA,RT SHOULDER PAIN,M25.511. TECHNIQUE: 2D digital imaging was performed. Four views. COMPARISON: No exams were available for comparison FINDINGS: BONES: No acute fracture is present. No bony destructive lesion is seen. JOINTS: No dislocation present. Prominent spurring at the acromioclavicular joint. Glenohumeral joint space is maintained. There is mild spurring at the margin of the glenoid, greater inferiorly. SOFT TISSUE: Normal. 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 Mild degenerative changes of the glenohumeral joint. DATA REPOSITORY: RADIATION DOSE DELIVERED:
== END ==
LOC: DI 02:41
PROVIDERS: PCP Nurse Practitioner Adult Health; Visit Provider Nurse Practitioner Adult Health
DX: M25.511 Pain in right shoulder (principal); M19.011 Primary osteoarthritis, right shoulder
CPT/HCPCS: 73030